=== PATIENT | male | born 1995 | race Caucasian/White ===

== ENCOUNTER 2018-06-30 21:33 | Emergency (ER) | payer OTHER ==
--- NOTE | 2018-06-30 21:45 | PDOC ---
Rapid Medical Evaluation Chief Complaint: Hematuria Time Seen by Provider: 06/30/18 21:44 Medical Evaluation: Allergies Allergy/AdvReac Type Severity Reaction Status Date / Time No Known Allergies Allergy Verified 03/28/15 22:47 06/30/18 21:44 I have performed a brief in-person evaluation of this patient. The patient presents with a chief complaint of: hematuria Pertinent physical exam findings:stable and in NAD, non-focal I have ordered the following:labs, ua The patient will proceed to the ED for further evaluation. Discharge Disposition - Discharge Dispostion Last Admission D/C Date: 95 - Referrals - Patient Instructions - Post Discharge Activity
[2018-06-30 21:46] VITALS: BP 116/69; PULSE 88; TEMP 98; BMI 20.9
[2018-06-30 22:18] LABS: BASO % 0.4 % (0-2.0); EOS % 2.2 % (0-4.5); HEMATOCRIT 46.9 % (35.4-49); HEMOGLOBIN 15.7 GM/dL (11.7-16.9); LYMPH % 27.3 % (8-40); MCH 30.6 pg (25.7-33.7); MCHC 33.5 g/dl (32.0-35.9); MEAN CELL VOLUME 91.4 fl (80-96); MEAN PLT VOLUME 9.9 fl (7.5-11.1); MONO % 6.9 % (3.8-10.2); NEUT % 63.2 % (42.8-82.8); PLATELET COUNT 189 K/MM3 (134-434); RBC 5.13 M/mm3 (4.00-5.60); RDW 12.9 % (11.9-15.9); WHITE BLOOD COUNT 8.2 K/mm3 (4.0-10.0)
[2018-06-30 22:26] LABS: EPI CELLS 0.4 /HPF (0-5/HPF); HYALINE CASTS 1 /lpf (0-8); PH,URINE 5.5 (5.0-8.0); URINE BACTERIA 0.5 /hpf (NEGATIVE); URINE BILIRUBIN NEGATIVE (NEGATIVE); URINE GLUCOSE (UA) NEGATIVE (NEGATIVE); URINE KETONE TRACE (NEGATIVE); URINE LEUK ESTERASE TRACE (NEGATIVE); URINE NITRITE NEGATIVE (NEGATIVE); URINE PROTEIN 1+ (NEGATIVE); URINE WBC 3 /hpf (0-5)
[2018-06-30 22:32] LABS: URINE APPEARANCE HAZY; URINE COLOR DKYELLOW
[2018-06-30 22:33] LABS: URINE RBC 111.9 /hpf (0-4); YEAST NONE SEEN (NEGATIVE)
[2018-06-30 22:55] LABS: ALBUMIN 4.2 g/dl (3.4-5.0); BILIRUBIN,TOTAL 0.4 mg/dL (0.2-1); CALCIUM 8.8 mg/dL (8.5-10.1); POTASSIUM 4.4 mmol/L (3.5-5.1); TOT PROT 7.3 g/dl (6.4-8.2)
[2018-06-30 23:52] LABS: INR 1.08 (0.83-1.09); PROTHROMBIN TIME (PATIENT) 12.7 SEC (9.7-13.0)
[2018-06-30 23:55] LABS: ACTIVATED PTT 34.6 SECONDS (25.2-36.5)
--- NOTE | 2018-07-01 01:34 | PDOC ---
Documentation entered by Haley Farris SCRIBE, acting as scribe for Brynn Fortune MD. Brynn Fortune MD: This documentation has been prepared by the Kaleigh heller Xhesika, SCRIBE, under my direction and personally reviewed by me in its entirety. I confirm that the documentation accurately reflects all work, treatment, procedures, and medical decision making performed by me. History of Present Illness - General Chief Complaint: Hematuria Stated Complaint: BLOOD IN URINE Time Seen by Provider: 06/30/18 21:44 History Source: Patient Exam Limitations: No Limitations - History of Present Illness Initial Comments: 06/30/18 23:24 The patient is a 22 year old male, with no significant PMH of who presents to the emergency department with hematuria 30 minutes prior to his arrival to the ED. The patient states he was at the gym, was running on the treadmill for 30 minutes, when he noticed his hematuria. The patient states he feels like his bladder is full, however, he denies any back pain or recent trauma. The patient denies chest pain, shortness of breath, headache and dizziness.Denies fever, chills, nausea, vomit, diarrhea and constipation.Denies dysuria, frequency, or urgency. Allergies: NKDA PCP: Meir Hernandez Past History - Past Medical History Allergies/Adverse Reactions: Allergies Allergy/AdvReac Type Severity Reaction Status Date / Time No Known Allergies Allergy Verified 06/30/18 21:46 Home Medications: Ambulatory Orders Docusate Sodium [Colace -] 100 mg PO BID #30 capsule 03/29/15 COPD: No - Immunization History Immunization Up to Date: Yes - Suicide/Smoking/Psychosocial Hx Smoking History: Unknown if ever smoked Have you smoked in the past 12 months: No Information on smoking cessation initiated: No Hx Alcohol Use: No Drug/Substance Use Hx: No Review of Systems - Review of Systems Able to Perform ROS?: Yes Comments:: 06/30/18 23:28 GENERAL/CONSTITUTIONAL: No fever or chills. No weakness. HEAD, EYES, EARS, NOSE AND THROAT: No change in vision. No ear pain or discharge. No sore throat. CARDIOVASCULAR: No chest pain or shortness of breath. RESPIRATORY: No cough, wheezing, or hemoptysis. GASTROINTESTINAL: No nausea, vomiting, diarrhea or constipation. GENITOURINARY: (+) hematuria. No dysuria, frequency,. MUSCULOSKELETAL: No joint or muscle swelling or pain. No neck or back pain. SKIN: No rash NEUROLOGIC: No headache, vertigo, loss of consciousness, or change in strength/ sensation. ENDOCRINE: No increased thirst. No abnormal weight change. HEMATOLOGIC/LYMPHATIC: No anemia, easy bleeding, or history of blood clots. ALLERGIC/IMMUNOLOGIC: No hives or skin allergy. *Physical Exam - Vital Signs Last Vital Signs Temp Pulse Resp BP Pulse Ox 98.0 F 88 16 116/69 100 06/30/18 21:44 06/30/18 21:44 06/30/18 21:44 06/30/18 21:44 06/30/18 21:44 - Physical Exam Comments: 06/30/18 23:28 GENERAL: Awake, alert, and fully oriented, in no acute distress HEAD: No signs of trauma EYES: PERRLA, EOMI, sclera anicteric, conjunctiva clear ENT: Auricles normal inspection, hearing grossly normal, nares patent, oropharynx clear without exudates. Moist mucosa NECK: Normal ROM, supple, no lymphadenopathy, JVD, or masses LUNGS: Breath sounds equal, clear to auscultation bilaterally. No wheezes, and no crackles HEART: Regular rate and rhythm, normal S1 and S2, no murmurs, rubs or gallops ABDOMEN: Soft, nontender, normoactive bowel sounds. No guarding, no rebound. No masses EXTREMITIES: Normal range of motion, no edema. No clubbing or cyanosis. No cords, erythema, or tenderness NEUROLOGICAL: Cranial nerves II through XII grossly intact. Normal speech, normal gait SKIN: Warm, Dry, normal turgor, no rashes or lesions noted. ED Treatment Course - LABORATORY CBC & Chemistry Diagram: 06/30/18 21:55 06/30/18 21:55 - ADDITIONAL ORDERS Additional order review: Laboratory Results 06/30/18 06/30/18 21:55 21:55 Sodium 139 Potassium 4.4 Chloride 104 Carbon Dioxide 27 Anion Gap 7 L BUN 20 H Creatinine 1.0 Est GFR (CKD-EPI)AfAm 123.27 Est GFR (CKD-EPI)NonAf 106.36 Random Glucose 126 H Calcium 8.8 Total Bilirubin 0.4 AST 27 ALT 30 Alkaline Phosphatase 96 Total Protein 7.3 Albumin 4.2 Urine Color Dkyellow Urine Appearance Hazy Urine pH 5.5 Ur Specific [place] 1.027 Urine Protein 1+ H Urine Glucose (UA) Negative Urine Ketones Trace H Urine Blood 3+ H Urine Nitrite Negative Urine Bilirubin Negative Urine Urobilinogen 1.0 Ur Leukocyte Esterase Trace Urine WBC (Auto) 3 Urine RBC (Auto) 111.9 Urine Casts (Auto) 1 U Epithel Cells (Auto) 0.4 Urine Bacteria (Auto) 0.5 Urine Yeast (Auto) None seen 06/30/18 21:55 RBC 5.13 MCV 91.4 MCHC 33.5 RDW 12.9 MPV 9.9 Neutrophils % 63.2 Lymphocytes % 27.3 Monocytes % 6.9 Eosinophils % 2.2 Basophils % 0.4 - RADIOLOGY Radiology Studies Ordered: Category Date Time Status KIDNEY / RENAL US [US] Stat Ultrasound 07/01/18 23:29 Taken PELVIC / BLADDER US [US] Stat Ultrasound 07/01/18 23:30 Taken Medical Decision Making - Medical Decision Making 07/01/18 01:23 22-year-old male presents with painless hematuria,denies any trauma, normal creatinine kidney Us shows normal morphology,mild BPH Sounded kidneys and bladder. For painless hematuria, the impression there are no renal stones or hydronephrosis. There was moderate prostate enlargement with a small cyst, possibly a urethral diverticulum. pt referred to urology 07/01/18 01:26 *DC/Admit/Observation/Transfer Diagnosis at time of Disposition: Hematuria Qualifiers: Hematuria type: idiopathic Glomerular morphologic changes: unspecified whether glomerular morphologic changes present Qualified Code(s): N02.9 - Recurrent and persistent hematuria with unspecified morphologic changes - Discharge Dispostion Disposition: HOME Condition at time of disposition: Stable Decision to Admit order: No - Referrals Referrals: Gunnar Blanco MD [Staff Physician] - - Patient Instructions Printed Discharge Instructions: DI for Hematuria Additional Instructions: Please take tylenol or ibuprofen or aleve for discomfort Please follow up with a urologist Return for worsening symptoms - Post Discharge Activity
== END 2018-07-01 01:42 | disposition home or self-care (01) ==
LOC: JER 21:33
DX: N02.9 Recurrent and persistent hematuria with unspecified morphologic changes (principal)
CPT/HCPCS: 36415; 76775-TC; 76856-TC; 80053; 81003; 85025; 85610; 85730; 87086; 87491; 87591; 99282-25

== ENCOUNTER 2020-11-21 21:43 | Emergency (ER) | payer OTHER ==
[2020-11-21 22:23] VITALS: BP 112/75; PULSE 94; TEMP 98.1; BMI 22.6
[2020-11-22] MEDS ORDERED: KETOROLAC TROMETHAMINE 30 MG/1 ML VIAL IM ONE (00:15)
[2020-11-22] MEDS ORDERED: LIDOCAINE 5% TOPICAL PATCH TP ONE (00:16)
[2020-11-22] MEDS ORDERED: LIDOCAINE 5% TOPICAL PATCH ONE (00:33)
[2020-11-22] MEDS ORDERED: KETOROLAC TROMETHAMINE 30 MG/1 ML VIAL ONE (00:33)
[2020-11-22] MEDS ORDERED: LIDOCAINE PATCH REMOVAL MC SCH (22:00)
== END 2020-11-22 01:05 | disposition home or self-care (01) ==
LOC: JER 21:43
PROC: 3E0233Z Introduction of Anti-inflammatory into Muscle, Percutaneous Approach (ICD-10-PCS; principal; 2020-11-22)
DX: M54.50 Low back pain, unspecified (principal)
CPT/HCPCS: 99284-25

== ENCOUNTER 2022-01-27 03:04 | Emergency (ER) | payer OTHER ==
[2022-01-27 03:17] VITALS: BP 105/67; PULSE 83; RESP 16; TEMP 97.7; BMI 25.8
== END 2022-01-27 06:35 | disposition home or self-care (01) ==
LOC: JER 03:04
DX: R07.9 Chest pain, unspecified (principal)
CPT/HCPCS: 71046-TC-FY; 93005; 93010; 99284-25

== ENCOUNTER 2022-04-03 22:54 | Emergency (ER) | payer OTHER ==
[2022-04-03 23:00] VITALS: TEMP 98; BMI 24.8
[2022-04-04 00:21] LABS: BASO % 0.5 % (0-2.0); EOS % 2.2 % (0-4.5); HEMATOCRIT 41.7 % (35.4-49); HEMOGLOBIN 14.6 GM/dL (11.7-16.9); LYMPH % 33.7 % (8-40); MCH 30.8 pg (25.7-33.7); MCHC 35.1 g/dl (32.0-35.9); MEAN CELL VOLUME 87.9 fl (80-96); MEAN PLT VOLUME 9.5 fl (7.5-11.1); NEUT % 55.6 % (42.8-82.8); PLATELET COUNT 212 10^3/uL (134-434); RBC 4.75 M/mm3 (4.00-5.60); WHITE BLOOD COUNT 7.1 K/mm3 (4.0-10.0)
[2022-04-04 00:41] LABS: CALCIUM 9.1 mg/dL (8.5-10.1)
[2022-04-04 00:42] LABS: ALBUMIN 4.1 g/dl (3.4-5.0); BLOOD UREA NITROGEN 10.1 mg/dL (7-18); MAGNESIUM 2.2 mg/dL (1.8-2.4)
[2022-04-04 00:45] LABS: CREATININE 0.8 mg/dL (0.55-1.3); PHOSPHOROUS 3.5 mg/dL (2.5-4.9)
[2022-04-04 00:46] LABS: TOT PROT 7.5 g/dl (6.4-8.2)
[2022-04-04 00:47] LABS: BILIRUBIN,TOTAL 0.5 mg/dL (0.2-1)
[2022-04-04 01:24] VITALS: BP 128/53; PULSE 71; RESP 18
== END 2022-04-04 01:33 | disposition home or self-care (01) ==
LOC: JER 22:54
DX: R20.2 Paresthesia of skin (principal)
CPT/HCPCS: 36415; 70450-TC; 80053; 83735; 84100; 84484; 85025; 93005; 93010; 99285-25